=== PATIENT | female | born 1985 | race African-American/Black ===

== ENCOUNTER → 2019-01-09 | Outpatient (REF) | payer OTHER | LOC: M SFHCLERA 14:04 | PROVIDERS: ATTEND Nurse Practitioner Family | DX: Z53.9 Procedure and treatment not carried out, unspecified reason (principal) ==

== ENCOUNTER → 2019-02-28 | Outpatient (CLI) | payer OTHER ==
[2019-02-28 17:44] LABS: FOLLICLE STIMULATING HORMONE 6.3 mIU/mL; LUTEINIZING HORMONE 7.6 mIU/mL; PROGESTERONE 0.21 NG/ML; PROLACTIN 7.9 NG/ML
== END ==
LOC: M PLALAB 11:51
PROVIDERS: ATTEND Specialist
DX: N92.6 Irregular menstruation, unspecified (principal)

== ENCOUNTER → 2019-02-28 | Outpatient (REF) | payer OTHER ==
[2019-02-28 17:29] LABS: BASO % 0.3 % (0.0-1.0); EOS # 0.1 10^3/uL (0.0-0.5); EOS % 0.7 % (0.0-3.0); HEMATOCRIT 41.2 % (36.0-47.0); HEMOGLOBIN 13.4 g/dl (12.0-15.5); LYMPH # 3.5 10^3/uL (1.5-5.0); LYMPH % 31.6 % (24.0-44.0); MEAN CORPUSCULAR HGB CONC 32.5 g/dl (32.0-36.5); MEAN CORPUSCULAR VOLUME 89.2 fl (80.0-96.0); MONO # 0.5 10^3/uL (0.0-0.8); MONO % 4.5 % (0.0-5.0); NEUTROPHILS % 62.5 % (36.0-66.0); PLATELET COUNT, AUTOMATED 281 10^3/uL (150-450); RED BLOOD COUNT 4.62 10^6/uL (4.00-5.40); WHITE BLOOD COUNT 11.2 10^3/uL (4.0-10.0)
[2019-02-28 17:41] LABS: ALBUMIN 3.6 GM/DL (3.2-5.2); ALT/SGPT 22 U/L (12-78); BILIRUBIN,TOTAL 0.3 MG/DL (0.2-1.0); BLOOD UREA NITROGEN 11 MG/DL (7-18); CALCIUM LEVEL 8.8 MG/DL (8.5-10.1); CARBON DIOXIDE LEVEL 24 MEQ/L (21-32); CHLORIDE LEVEL 108 MEQ/L (98-107); CHOLESTEROL LEVEL 167 MG/DL (<200); CHOLESTEROL RISK RATIO 3.036 (<5); CREATININE FOR GFR 0.69 MG/DL (0.55-1.30); FREE T4 1.24 NG/DL (0.76-1.46); GLOMERULAR FILTRATION RATE > 60.0 (>60); GLUCOSE, FASTING 104 MG/DL (70-100); HDL CHOLESTEROL 55 MG/DL (>40); LDL CHOLESTEROL 94 MG/DL (<100); NON-HDL-C 112 MG/DL; POTASSIUM SERUM 4.1 MEQ/L (3.5-5.1); SODIUM LEVEL 140 MEQ/L (136-145); TOTAL PROTEIN 7.6 GM/DL (6.4-8.2); TRIGLYCERIDES LEVEL 88 MG/DL (<150)
[2019-02-28 17:49] LABS: HEMOGLOBIN A1c 7.1 %
[2019-02-28 18:21] LABS: MALB URINE SIEMENS 27.3 MG/L
== END ==
LOC: M SFHCLERA 11:58
PROVIDERS: ATTEND Nurse Practitioner Family
DX: Z76.89 Persons encountering health services in other specified circumstances (principal); E03.9 Hypothyroidism, unspecified; E11.9 Type 2 diabetes mellitus without complications; R82.90 Unspecified abnormal findings in urine; N92.6 Irregular menstruation, unspecified
CPT/HCPCS: 36415; 80053; 80061; 82043; 83001; 83002; 83036; 84144; 84146; 84439; 84443; 85025; G0463

== ENCOUNTER 2019-04-21 15:06 | Emergency (ER) | payer OTHER ==
[~2019-04-21] VITALS: Ht 167.6 cm; Wt 139.1 kg
[2019-04-21] MEDS ORDERED: CLOM50TA9 PO (15:27)
[2019-04-21] MEDS ORDERED: PROV10TA PO (15:27)
[2019-04-21] MEDS ORDERED: ALBU83IN NEB (15:30)
[2019-04-21 15:42] LABS: BASO % 0.2 % (0.0-1.0); EOS # 0.1 10^3/uL (0.0-0.5); EOS % 0.5 % (0.0-3.0); HEMATOCRIT 36.4 % (36.0-47.0); HEMOGLOBIN 12.2 g/dl (12.0-15.5); LYMPH # 3.3 10^3/uL (1.5-5.0); LYMPH % 23.4 % (24.0-44.0); MEAN CORPUSCULAR HEMOGLOBIN 29.5 pg (27.0-33.0); MEAN CORPUSCULAR HGB CONC 33.5 g/dl (32.0-36.5); MEAN CORPUSCULAR VOLUME 88.1 fl (80.0-96.0); MONO # 0.6 10^3/uL (0.0-0.8); MONO % 4.5 % (0.0-5.0); PLATELET COUNT, AUTOMATED 322 10^3/uL (150-450); RED BLOOD COUNT 4.13 10^6/uL (4.00-5.40); WHITE BLOOD COUNT 14.1 10^3/uL (4.0-10.0)
--- NOTE | 2019-04-21 15:42 | REP ---
Portable chest x-ray: Two views presented. History: Chest pain. No comparison study. Findings: The lungs are well inflated and clear. The pleural angles are sharp. Heart size is normal. Pulmonary vasculature is not increased. EKG electrodes are seen. Impression: Negative portable chest x-ray.. Electronically Signed by Dustin Jiang MD 04/21/2019 03:33 P
[2019-04-21 16:10] LABS: ERYTHROCYTE SEDIMENTATION RATE 46 mm/hr (0-20)
[2019-04-21 16:19] LABS: BLOOD UREA NITROGEN 15 MG/DL (7-18); CALCIUM LEVEL 9.1 MG/DL (8.5-10.1); CARBON DIOXIDE LEVEL 26 MEQ/L (21-32); CHLORIDE LEVEL 107 MEQ/L (98-107); CK-MB VALUE MASS < 1.0 NG/ML (<3.6); CPK CREATINE PHOSPHOKINASE 71 U/L (26-192); CREATININE FOR GFR 0.76 MG/DL (0.55-1.30); GLOMERULAR FILTRATION RATE > 60.0 (>60); GLUCOSE, FASTING 102 MG/DL (70-100); MB/CK RELATIVE INDEX 1.41 (< OR =4); POTASSIUM SERUM 4.1 MEQ/L (3.5-5.1); SODIUM LEVEL 139 MEQ/L (136-145); TROPONIN I < 0.02 NG/ML (< 0.10)
[2019-04-21] MEDS ORDERED: COMBIVENT RESPIMAT 100-20MCG INHALER 4GM INH ONE (17:00)
--- NOTE | 2019-04-21 17:28 | ECGEPIP ---
[facility] - ED Test Date: 2019-04-21 Pat Name: POORNIMA MARIEepartment: Room: - Gender: Female Manager Clinical Informatics: ct : 1985 Requested By: Melania Antunez Order Number: [id number] Reading MD: Melania Antunez Measurements Intervals [place] Rate: 89 P: 30 [place]: 206 QRS: 8 QRSD: 90 T: 20 QT: 334 QTc: 408 Interpretive Statements SINUS RHYTHM NSTTW abnormalities NO PRIOR Electronically Signed on 04-21-2019 17:28:01 EDT by Melania Antunez
[2019-04-21] MEDS ORDERED: predniSONE 20 MG TAB PO ONE (17:30)
[2019-04-21] MEDS ORDERED: ACETAMINOPHEN 325 MG TAB As Ordered ONE (17:39)
[2019-04-21] MEDS ORDERED: ACETAMINOPHEN 325 MG TAB PO ONE (17:45)
--- NOTE | 2019-04-21 18:00 | REPVR ---
PROCEDURE INFORMATION: Exam: US Duplex Lower Extremity Veins Exam date and time: 04/21/2019 5:56 PM Age: 34 years old Clinical indication: Pain; Leg, lower; Bilateral; Additional info: Cp/dyspnea TECHNIQUE: Imaging protocol: Real-time duplex ultrasound of the Lower Extremities with 2-D cabrera scale, color Doppler flow and spectral waveform analysis with image documentation. Complete exam focused on the bilateral lower extremity veins. COMPARISON: No relevant prior studies available. FINDINGS: Veins evaluated include common femoral, saphenofemoral junction, femoral, popliteal Doppler evaluation shows normal venous flow with respiratory variation and augmentation with distal compression. No intraluminal filling defect. Doppler waveforms and flow directionality are normal. No abnormal focal fluid collections present. IMPRESSION: No evidence of deep venous thrombosis in visualized lower extremity veins. Electronically signed by: Mikey Méndez On 04/21/2019 18:00:19 PM
[2019-04-21] MEDS ORDERED: COMBAER6 INH (18:06)
[2019-04-21] MEDS ORDERED: PRED20TA PO (18:07)
[2019-04-21 18:27] LABS: ALBUMIN 3.2 GM/DL (3.2-5.2); ALT/SGPT 14 U/L (12-78); BILIRUBIN,DIRECT < 0.1 MG/DL (0.0-0.2); BILIRUBIN,TOTAL 0.2 MG/DL (0.2-1.0); LIPASE 78 U/L (73-393); TOTAL PROTEIN 7.5 GM/DL (6.4-8.2)
[2019-04-21] MEDS ORDERED: ONDANSETRON 4MG/2ML VIAL (J2405) IV ONE (18:30)
[2019-04-21] MEDS: MORPHINE 4 MG/ML 1ML VIAL/SYRINGE (J2270) IV PRN ×2 (18:35→19:35)
--- NOTE | 2019-04-21 19:40 | REPVR ---
PROCEDURE INFORMATION: Exam: US Pelvis Complete, Transabdominal Exam date and time: 04/21/2019 7:28 PM Age: 34 years old Clinical indication: Pelvic pain TECHNIQUE: Imaging protocol: Real-time transabdominal pelvic ultrasound with image documentation. Complete exam. COMPARISON: No relevant prior studies available. FINDINGS: Exam is limited due to patient body habitus and resultant poor resolution. Uterus measures 8.5 x 5.8 x 6.8 cm in size. No focal uterine mass. Endometrial stripe appears homogeneous, measuring six mm in thickness. Right and left ovaries are not visualized on either transabdominal or endovaginal imaging No abnormal volume of free fluid within the pelvis. IMPRESSION: Unremarkable appearance of the uterus and endometrium. Nonvisualization of the ovaries despite transabdominal and endovaginal pelvic imaging. Electronically signed by: Mikey Méndez On 04/21/2019 19:39:50 PM
[2019-04-21 20:00] VITALS: BP 131/86
== END 2019-04-21 20:19 | disposition home or self-care (01) ==
LOC: EDBD 15:06 → M ED 15:06
DX: J45.909 Unspecified asthma, uncomplicated (principal); R10.9 Unspecified abdominal pain; R11.2 Nausea with vomiting, unspecified; E11.9 Type 2 diabetes mellitus without complications; E03.9 Hypothyroidism, unspecified; D25.9 Leiomyoma of uterus, unspecified; Z88.0 Allergy status to penicillin; Z88.8 Allergy status to other drugs, medicaments and biological substances; Z91.041 Radiographic dye allergy status; Z79.51 Long term (current) use of inhaled steroids; Z79.899 Other long term (current) drug therapy
CPT/HCPCS: 71045; 76830; 76856; 80048; 80076; 82550; 82553; 83690; 84484; 85025; 85652; 87804; 93005; 93041; 93970; 94640; 94760; 96374; 96375; 99285; G0463; J2270; J2405

== ENCOUNTER → 2019-04-30 | Outpatient (REF) ==
[~2019-04-30] MED LIST: ALBU83IN NEB; CLOM50TA9 PO; COMBAER6 INH; PRED20TA PO; PROV10TA PO
[2019-04-30 11:40] LABS: RUBELLA IgG QUALITATIVE IMMUNE (IMMUNE)
== END ==
LOC: M LAB 10:02
PROVIDERS: ATTEND Nurse Practitioner Adult Health
DX: Z02.1 Encounter for pre-employment examination (principal)

== ENCOUNTER 2019-08-20 14:25 | Emergency (ER) | payer OTHER ==
[~2019-08-20] VITALS: Ht 165.1 cm; Wt 141.8 kg
[2019-08-20] MEDS ORDERED: LEVO50TA5 (14:33)
[2019-08-20] MEDS ORDERED: ZOFR4TAB16 PO (14:33)
[2019-08-20] MEDS ORDERED: METF-838 (14:33)
[2019-08-20 15:30] LABS: BASO % 0.1 % (0.0-1.0); EOS # 0.1 10^3/uL (0.0-0.5); EOS % 0.9 % (0.0-3.0); HEMATOCRIT 35.6 % (36.0-47.0); HEMOGLOBIN 11.7 g/dl (12.0-15.5); LYMPH # 3.9 10^3/uL (1.5-5.0); LYMPH % 28.8 % (24.0-44.0); MEAN CORPUSCULAR HEMOGLOBIN 28.2 pg (27.0-33.0); MEAN CORPUSCULAR HGB CONC 32.9 g/dl (32.0-36.5); MEAN CORPUSCULAR VOLUME 85.8 fl (80.0-96.0); MONO # 0.7 10^3/uL (0.0-0.8); MONO % 4.8 % (0.0-5.0); NEUTROPHILS # 8.8 10^3/uL (1.5-8.5); PLATELET COUNT, AUTOMATED 317 10^3/uL (150-450); RED BLOOD COUNT 4.15 10^6/uL (4.00-5.40); WHITE BLOOD COUNT 13.6 10^3/uL (4.0-10.0)
[2019-08-20 15:49] LABS: ALBUMIN 3.1 GM/DL (3.2-5.2); ALT/SGPT 21 U/L (12-78); BILIRUBIN,DIRECT < 0.1 MG/DL (0.0-0.2); BILIRUBIN,TOTAL 0.1 MG/DL (0.2-1.0); LIPASE 93 U/L (73-393); TOTAL PROTEIN 7.2 GM/DL (6.4-8.2)
[2019-08-20 17:00] LABS: BLOOD UREA NITROGEN 8 MG/DL (7-18); CARBON DIOXIDE LEVEL 29 MEQ/L (21-32); CHLORIDE LEVEL 105 MEQ/L (98-107); CK-MB VALUE MASS 1.1 NG/ML (<3.6); CPK CREATINE PHOSPHOKINASE 89 U/L (26-192); CREATININE FOR GFR 0.74 MG/DL (0.55-1.30); GLOMERULAR FILTRATION RATE > 60.0 (>60); GLUCOSE, FASTING 127 MG/DL (70-100); MB/CK RELATIVE INDEX 1.24 (< OR =4); POTASSIUM SERUM 4.1 MEQ/L (3.5-5.1); SODIUM LEVEL 140 MEQ/L (136-145); TROPONIN I < 0.02 NG/ML (< 0.10)
[2019-08-20] MEDS ORDERED: NS 1,000 ML IV ONE (17:00)
[2019-08-20] MEDS ORDERED: READI-CAT 2 PO SCH (17:10)
[2019-08-20] MEDS ORDERED: ONDANSETRON 4MG/2ML VIAL IV ONE ×2 (17:15→18:00)
[2019-08-20] MEDS ORDERED: KETOROLAC 30 MG/ML 1ML VIAL IV ONE (17:15)
--- NOTE | 2019-08-20 17:54 | ECGEPIP ---
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
[2019-08-20] MEDS ORDERED: MORPHINE 4 MG/ML 1ML VIAL/SYRINGE (J2270) IV ONE (18:00)
[2019-08-20 18:30] VITALS: BP 182/106
--- NOTE | 2019-08-21 01:31 | REP ---
CHEST, SINGLE VIEW: There is no evidence of acute infiltrate. No pleural effusion is seen. The heart is normal in size. The mediastinal silhouette is unremarkable. The visualized osseous structures are intact. IMPRESSION: No acute pulmonary disease. Electronically Signed by Ashutosh Davis MD 08/22/2019 10:07 A
== END 2019-08-20 18:42 | disposition left against medical advice (07) ==
LOC: M ED 14:25
DX: R11.2 Nausea with vomiting, unspecified (principal); Z53.20 Procedure and treatment not carried out because of patient's decision for unspecified reasons; Z79.51 Long term (current) use of inhaled steroids; Z79.84 Long term (current) use of oral hypoglycemic drugs; Z79.899 Other long term (current) drug therapy; Z88.0 Allergy status to penicillin; Z88.8 Allergy status to other drugs, medicaments and biological substances
CPT/HCPCS: 36415; 71045; 80047; 80048; 80076; 82550; 82553; 83690; 84484; 84702; 85025; 93005; 96361; 96374; 96375; 96376; 99285; J1885; J2405

== ENCOUNTER 2019-10-14 11:20 | Emergency (ER) | payer OTHER ==
[~2019-10-14] VITALS: Ht 167.6 cm; Wt 138.6 kg
[~2019-10-14 11:20] MED LIST changes: +LEVO50TA5; +METF-838; +ZOFR4TAB16 PO
[2019-10-14] MEDS ORDERED: ONDANSETRON 4MG/2ML VIAL IV ONE (12:45)
[2019-10-14] MEDS ORDERED: NS 1,000 ML IV ONE (12:45)
[2019-10-14] MEDS ORDERED: MORPHINE 4 MG/ML 1ML VIAL/SYRINGE (J2270) IV ONE ×2 (12:45→14:15)
[2019-10-14] MEDS ORDERED: ONDANSETRON 4MG/2ML VIAL As Ordered ONE (13:02)
[2019-10-14] MEDS ORDERED: MORPHINE 4 MG/ML 1ML VIAL/SYRINGE (J2270) As Ordered ONE (13:02)
[2019-10-14 13:37] LABS: BASO % 0.1 % (0.0-1.0); EOS # 0.1 10^3/uL (0.0-0.5); EOS % 0.8 % (0.0-3.0); HEMATOCRIT 39.3 % (36.0-47.0); HEMOGLOBIN 13.1 g/dl (12.0-15.5); LYMPH # 3.8 10^3/uL (1.5-5.0); LYMPH % 27.6 % (24.0-44.0); MEAN CORPUSCULAR HEMOGLOBIN 29.2 pg (27.0-33.0); MEAN CORPUSCULAR HGB CONC 33.3 g/dl (32.0-36.5); MEAN CORPUSCULAR VOLUME 87.7 fl (80.0-96.0); MONO # 0.6 10^3/uL (0.0-0.8); MONO % 4.2 % (0.0-5.0); NEUTROPHILS # 9.2 10^3/uL (1.5-8.5); NEUTROPHILS % 66.8 % (36.0-66.0); PLATELET COUNT, AUTOMATED 322 10^3/uL (150-450); RED BLOOD COUNT 4.48 10^6/uL (4.00-5.40); WHITE BLOOD COUNT 13.7 10^3/uL (4.0-10.0)
[2019-10-14 13:46] LABS: ALBUMIN 3.2 GM/DL (3.2-5.2); ALT/SGPT 19 U/L (12-78); BILIRUBIN,DIRECT < 0.1 MG/DL (0.0-0.2); BILIRUBIN,TOTAL 0.3 MG/DL (0.2-1.0); BLOOD UREA NITROGEN 11 MG/DL (7-18); CALCIUM LEVEL 8.6 MG/DL (8.5-10.1); CARBON DIOXIDE LEVEL 26 MEQ/L (21-32); CHLORIDE LEVEL 107 MEQ/L (98-107); GLOMERULAR FILTRATION RATE > 60.0 (>60); GLUCOSE, FASTING 117 MG/DL (70-100); HCG, SERUM QUALITATIVE NEGATIVE (NEGATIVE); LIPASE 54 U/L (73-393); POTASSIUM SERUM 4.5 MEQ/L (3.5-5.1); SODIUM LEVEL 136 MEQ/L (136-145); TOTAL PROTEIN 7.4 GM/DL (6.4-8.2)
[2019-10-14] MEDS: READI-CAT 2 PO SCH ×2 (14:48→15:00)
[2019-10-14 16:00] VITALS: BP 144/96
== END 2019-10-14 13:59 | disposition left against medical advice (07) ==
LOC: M ED 11:20
DX: R10.9 Unspecified abdominal pain (principal); R11.2 Nausea with vomiting, unspecified; R19.7 Diarrhea, unspecified; Z53.9 Procedure and treatment not carried out, unspecified reason; E11.9 Type 2 diabetes mellitus without complications; E03.9 Hypothyroidism, unspecified; Z88.0 Allergy status to penicillin; Z91.041 Radiographic dye allergy status; Z79.51 Long term (current) use of inhaled steroids; Z79.899 Other long term (current) drug therapy
CPT/HCPCS: 80048; 80076; 83690; 84703; 85025; 93041; 96361; 96374; 96375; 96376; 99284; J2270; J2405

== ENCOUNTER → 2019-11-14 | Outpatient (CLI) | payer OTHER ==
[2019-11-14 14:28] LABS: FREE T4 1.3 NG/DL (0.76-1.46); THYROID STIMULATING HORMONE 1.14 uIU/ML (0.358-3.740)
== END ==
LOC: M LAB 13:06
PROVIDERS: ATTEND Internal Medicine Gastroenterology
DX: R10.84 Generalized abdominal pain (principal)

== ENCOUNTER → 2020-02-05 | Outpatient (CLI) | payer OTHER ==
[~2020-02-05] MED LIST changes: +AMIT25TA PO; +ESCI10TA2 PO; -LEVO50TA5; +LEVO50TA5 PO; -METF-838; +METF-838 PO
== END ==
LOC: M LABSMTC 09:34
PROVIDERS: ATTEND Anesthesiology
DX: Z01.812 Encounter for preprocedural laboratory examination (principal); Z20.828 Contact with and (suspected) exposure to other viral communicable diseases

== ENCOUNTER 2020-02-10 09:54 | Day surgery (SDC) | payer OTHER ==
[~2020-02-10] VITALS: Ht 165.1 cm; Wt 137.0 kg
[~2020-02-10 09:54] MED LIST changes: +NS 1,000 ML IV ONE
[2020-02-10] MEDS ORDERED: LIDOCAINE 2% 100MG/5ML SDV (FOR ANES.) As Ordered ONE (10:25)
[2020-02-10] MEDS ORDERED: propofoL 200 MG/20 ML VIAL As Ordered ONE ×2 (10:25→11:59)
[2020-02-10] MEDS ORDERED: fentaNYL 100 MCG/2 ML INJECTION (J3010) As Ordered ONE (10:26)
--- NOTE | 2020-02-10 11:53 | ROOR ---
Patient Name: Jefry Escalanteanijuan carlosknaman Procedure Date: 02/10/2020 11:40 AM Date of : 1985 Age: 34 Room: [facility] Gender: Female Note Status: Finalized Procedure: Upper GI endoscopy Indications: Abdominal pain, Nausea Providers: Ezequiel OG MD Referring MD: Evy PATTEN Requesting Provider: Medicines: Monitored Anesthesia Care Complications: No immediate complications. Procedure: Pre-Anesthesia Assessment: - The heart rate, respiratory rate, oxygen saturations, blood pressure, adequacy of pulmonary ventilation, and response to care were monitored throughout the procedure. The Endoscope was introduced through the mouth, and advanced to the second part of duodenum. The upper GI endoscopy was accomplished without difficulty. The patient tolerated the procedure well. Findings: The esophagus was normal. The stomach was normal. The examined duodenum was normal. Impression: - Normal esophagus. - Normal stomach. - Normal examined duodenum. - No specimens collected. Recommendation: - Follow an antireflux regimen. - Continue present medications. Procedure Code(s): --- Professional --- 21005, Esophagogastroduodenoscopy, flexible, transoral; diagnostic, including collection of specimen(s) by brushing or washing, when performed (separate procedure) Diagnosis Code(s): --- Professional --- R11.0, Nausea R10.9, Unspecified abdominal pain CPT copyright 2019 [employer]. All rights reserved. The codes documented in this report are preliminary and upon analytical data scientist review may be revised to meet current compliance requirements. Ezequiel Og MD Ezequiel OG MD 02/10/2020 11:53:06 AM Electronically signed by Ezequiel OG MD Number of Addenda: 0 Note Initiated On: 02/10/2020 11:40 AM Estimated Blood Loss: Estimated blood loss: none.
--- NOTE | 2020-02-10 12:17 | ROOR ---
Patient Name: Jefry Escalanteanipeknaman Procedure Date: 02/10/2020 11:40 AM Date of : 1985 Age: 34 Room: [facility] Gender: Female Note Status: Finalized Procedure: Colonoscopy Indications: Generalized abdominal pain, Hematochezia, Change in bowel habits Providers: Ezequiel OG MD Referring MD: Evy PATTEN Requesting Provider: Medicines: Monitored Anesthesia Care Complications: No immediate complications. Procedure: Pre-Anesthesia Assessment: - The heart rate, respiratory rate, oxygen saturations, blood pressure, adequacy of pulmonary ventilation, and response to care were monitored throughout the procedure. The Colonoscope was introduced through the anus and advanced to the terminal ileum, with identification of the appendiceal orifice and IC valve. The colonoscopy was performed without difficulty. The patient tolerated the procedure well. The quality of the bowel preparation was fair. Findings: The perianal and digital rectal examinations were normal. The colon (entire examined portion) appeared normal. The terminal ileum appeared normal. Small Internal Hemorrhoids. Biopsies for histology were taken with a cold forceps for evaluation of microscopic colitis. Impression: - Preparation of the colon was fair. - The entire examined colon is normal. - The examined portion of the ileum was normal. - Small Internal Hemorrhoids. - Biopsies were taken with a cold forceps for evaluation of microscopic colitis. Recommendation: - Continue present medications. - Telephone endoscopist for pathology results in 2 weeks. Procedure Code(s): --- Professional --- 34012, Colonoscopy, flexible; with biopsy, single or multiple Diagnosis Code(s): --- Professional --- R19.4, Change in bowel habit K92.1, Melena (includes Hematochezia) R10.84, Generalized abdominal pain CPT copyright 2019 [employer]. All rights reserved. The codes documented in this report are preliminary and upon toolroom keeper review may be revised to meet current compliance requirements. Ezequiel Og MD Ezequiel OG MD 02/10/2020 12:17:22 PM Electronically signed by Ezequiel OG MD Number of Addenda: 0 Note Initiated On: 02/10/2020 11:40 AM Estimated Blood Loss: Estimated blood loss: none.
[2020-02-10] MEDS ORDERED: IBUPROFEN 800 MG TAB PO STA (12:36)
[2020-02-10 12:50] VITALS: BP 122/72
== END 2020-02-10 13:12 | disposition home or self-care (01) ==
LOC: M OPP 09:54
PROVIDERS: ATTEND Internal Medicine Gastroenterology
DX: R10.84 Generalized abdominal pain (principal); K92.1 Melena; R19.4 Change in bowel habit; K64.8 Other hemorrhoids; R11.0 Nausea
CPT/HCPCS: 43235; 45380; 88305; J3010

== ENCOUNTER → 2020-04-19 | Outpatient (REF) | payer OTHER ==
[~2020-04-19] MED LIST changes: -AMIT25TA PO; +AMIT25TA17 PO; +ESCI10TA16 PO; -ESCI10TA2 PO; -NS 1,000 ML IV ONE
[2020-04-19 13:45] LABS: BLOOD UREA NITROGEN 12 MG/DL (7-18); CALCIUM LEVEL 9.4 MG/DL (8.5-10.1); CARBON DIOXIDE LEVEL 29 MEQ/L (21-32); CHLORIDE LEVEL 109 MEQ/L (98-107); GLOMERULAR FILTRATION RATE > 60.0 (>60); GLUCOSE, FASTING 84 MG/DL (70-100); POTASSIUM SERUM 4.2 MEQ/L (3.5-5.1); SODIUM LEVEL 141 MEQ/L (136-145)
== END ==
LOC: M PLALAB 10:12
PROVIDERS: ATTEND Family Medicine
DX: E03.9 Hypothyroidism, unspecified (principal)

== ENCOUNTER 2020-07-27 11:48 | Emergency (ER) | payer OTHER ==
[~2020-07-27] VITALS: Ht 167.6 cm; Wt 133.7 kg
[~2020-07-27 11:48] MED LIST changes: +JARD1TAB; +METF-838; +NITR1CAP11 PO; +PERC5TAB12 PO
[2020-07-27] MEDS ORDERED: KETOROLAC 30 MG/ML 1ML VIAL IV ONE (12:35)
[2020-07-27] MEDS ORDERED: ONDANSETRON 4MG/2ML VIAL IV ONE ×2 (13:00→14:15)
[2020-07-27] MEDS ORDERED: METOCLOPRAMIDE INJ 10MG/2ML VIAL (J2765 PER 1) IV ONE (13:00)
[2020-07-27 13:10] LABS: BASO % 0.2 % (0.0-1.0); EOS # 0.1 10^3/uL (0.0-0.5); EOS % 0.7 % (0.0-3.0); HEMATOCRIT 39.5 % (36.0-47.0); HEMOGLOBIN 12.4 g/dl (12.0-15.5); LYMPH # 2.8 10^3/uL (1.5-5.0); LYMPH % 22.3 % (24.0-44.0); MEAN CORPUSCULAR HEMOGLOBIN 26.6 pg (27.0-33.0); MEAN CORPUSCULAR HGB CONC 31.4 g/dl (32.0-36.5); MEAN CORPUSCULAR VOLUME 84.6 fl (80.0-96.0); MONO # 0.5 10^3/uL (0.0-0.8); MONO % 4.3 % (2.0-8.0); NEUTROPHILS # 8.9 10^3/uL (1.5-8.5); NEUTROPHILS % 72.3 % (36.0-66.0); PLATELET COUNT, AUTOMATED 378 10^3/uL (150-450); RED BLOOD COUNT 4.67 10^6/uL (4.00-5.40); WHITE BLOOD COUNT 12.4 10^3/uL (4.0-10.0)
[2020-07-27 13:35] LABS: ALBUMIN 3.4 GM/DL (3.2-5.2); ALT/SGPT 24 U/L (12-78); BILIRUBIN,DIRECT < 0.1 MG/DL (0.0-0.2); BILIRUBIN,TOTAL 0.2 MG/DL (0.2-1.0); FREE T4 1.27 NG/DL (0.76-1.46); LIPASE 65 U/L (73-393); THYROID STIMULATING HORMONE 0.848 uIU/ML (0.358-3.740); TOTAL PROTEIN 7.6 GM/DL (6.4-8.2)
[2020-07-27] MEDS ORDERED: PERCOCET 5MG/325MG TAB PO ONE (14:05)
[2020-07-27] MEDS ORDERED: MORPHINE 4 MG/ML 1ML VIAL/SYRINGE (J2270) IV ONE (14:15)
[2020-07-27 15:45] LABS: CHLAMYDIA DNA AMPLIFICATION NEGATIVE (NEGATIVE); GC DNA AMPLIFICATION NEGATIVE (NEGATIVE)
[2020-07-27] MEDS ORDERED: HYDROmorphone 2 MG TAB PO ONE (15:45)
[2020-07-27] MEDS ORDERED: PILL CUTTER 1 EACH XX ONE (16:02)
[2020-07-27] MEDS ORDERED: HYDROMORPHONE HCL 0.5 MG/ 0.5 ML SYRINGE (J1170 PER 1) IV ONE ×2 (16:05→18:25)
--- NOTE | 2020-07-27 16:46 | REP ---
INDICATION: R/O TORSION. COMPARISON: Multiple the latest 07/21/2020 TECHNIQUE: Transvesical and transvaginal scanning FINDINGS: The uterus measures 9.3 x 5.4 x 6.2 cm. The parenchymal echo pattern is unchanged and again seen to be within normal limits. The endometrial echo complex has a maximal thickness of 8 mm and is within normal limits. The right ovary measures 3.2 x 2.6 x 2.8 cm. Ovarian Doppler could not be obtained. The right ovary has a normal appearance. The left ovary measures 2.5 x 1.9 x 2.3 cm and has a normal appearance. Ovarian Doppler could not be obtained. Urinary bladder was seen to be empty. IMPRESSION: Negative but limited exam as ovarian Doppler could not be obtained. <Electronically signed by Valentin Zapata > 07/27/20 [id number]
[2020-07-27] MEDS ORDERED: PROMETHAZINE INJ 25 MG/ML VIAL (J2550) IV ONE (17:55)
[2020-07-27] MEDS ORDERED: NS 1,000 ML IV ONE (18:05)
--- NOTE | 2020-07-27 20:00 | REP ---
INDICATION: Doppler both ovaries. COMPARISON: Pelvic ultrasound earlier today. TECHNIQUE: Limited transvaginal ultrasound performed to evaluate blood flow in the ovaries, as earlier pelvic ultrasound could not detect Doppler flow in either ovary. FINDINGS: Once again Doppler interrogation of the left ovary is unsuccessful. There does appear to be arterial and venous flow in the right ovary. IMPRESSION: Extremely limited exam again once again by patient body habitus. The Doppler interrogation does demonstrate blood flow within the right ovary, however, blood flow could not be documented in the left ovary. <Electronically signed by Ashutosh Davis > 07/27/201956
[2020-07-27] MEDS ORDERED: OXYC1TAB23 PO (21:30)
[2020-07-27] MEDS ORDERED: ZOFR4TAB16 PO (21:32)
--- NOTE | 2020-07-27 21:43 | CR.PDOC ---
General Date of Consultation: Jul 27, 2020 Attending Physician: Heaven Maldonado MD Consultation REASON FOR CONSULTATION/CHIEF COMPLAINT: pelvic pain. HISTORY OF PRESENT ILLNESS: Jefry is a 35yo who recently underwent an unsuccessful IVF cycle. She presents to the ER for pelvic/abdominal pain that began on 18 July. She presented to ER on 21 July and was seen by Dr. Baldwin. At that time she was offered option of observation with pain management vs diagnostic laparoscopy vs discharge with outpatient follow-up and she elected for outpatient follow-up. She has history of chronic pelvic pain and infertility. She notes that her pain has been the same as when she was here on the , it is cramping/sharp in nature, located across the lower abdomen/pelvis and improves somewhat with pain medications that she was discharged with. Today she was given dilaudid and pain does not go away completely. She notes nausea and vomiting episodes today. NO fevers/chills. Had a normal bowel movement this morning. She has had light intermittent spotting, and denies heavy vaginal bleeding. She is tearful in our interaction stating that she "just wants to find the cause". She notes that she saw Dr. Suarez in the office previously and was hoping to get in with him, but has not been able to make an appt despite referral being placed by her PCP. Her history is significant for a laparotomy procedure in 2019 for pain where there was suspicion of an ovarian torsion, but during the surgery there was no abnormality noted other than scar tissue. Unfortunately, the patient went on to develop an infection with re-admission and had to have a drain placed. Pelvic ultrasound was performed earlier today and did not comment on blood flow to the ovaries so another ultrasound was requested and they were able to note flow to the right ovary but were not able to comment on flow to the left ovary secondary to difficulties related to body habitus. ALLERGIES: Please see below. HOME MEDICATIONS: Please see below. PAST MEDICAL HISTORY: 1. Uterine leiomyomas, status post open myomectomy. 2. Chronic pelvic pain. 3. hypothyroid. 4. diabetes mellitus type 2 5. hypertension 6. severe obesity, BMI 47 PAST SURGICAL HISTORY: 1. 2009, open myomectomy, removal of several leiomyomas 2. 2012, laparoscopic cholecystectomy. 3. 2015, D&C for an SAB 4. 2018, exploratory laparotomy via Pfannenstiel (suspected/concerns for ovarian torsion, but no significant intraoperative findings other than scar tissue); this was complicated by wound infection and hospital readmission for drain placement ([facility]) SOCIAL HISTORY: Marital status and/or living arrangements: is [employer] No tobacco, alcohol or drug use PHYSICAL EXAMINATION: VITAL SIGNS: Please see below. GENERAL APPEARANCE: Tearful, able to move comfortably in the bed ABDOMEN: Obese, no guarding or rebound, no rigidity. Nonacute. Some mild tenderness to palpation in the lower abdomen. NEUROLOGICAL: No deficits LABORATORY DATA: Please see below. Imaging data: See [employer] for reports ASSESSMENT/PLAN: 1. Chronic pelvic pain. Nonacute abdomen. Suspicion for ovarian torsion remains low (especially since the ovaries are normal in size, pain is unchanged over the past nearly 10 days, abdomen is non-surgical on exam and labs are stable). 2. Offered diagnostic laparoscopy vs hospital admission for pain control/observation vs close outpatient follow-up. We discussed that if her pain is related to adhesions or endometriosis, the surgery she needs would be better suited as a scheduled case rather than a late night add-on. Given that she does not have an acute abdomen, it is reasonable to perform surgery at a later date. She elected for close outpatient folllow-up. She very specifically wants to see Dr. Suarez again since she established care with him previously. I will try to get her an appointment with him this Sunday when he is in the office- patient will be called with appt time. 3. Limited prescription for Percocet given by ER provider as well as a work note to get her through to next Sunday. Vital Signs/I&O Vital Signs Date Time Temp Pulse Resp B/P (MAP) Pulse Ox O2 Delivery O2 Flow Rate FiO2 07/27/20 21:10 97.4 98 19 149/84 (105) 96 Room Air Laboratory Data Labs 24H Laboratory Tests 2 07/27/20 12:46: Immature Granulocyte % (Auto) 0.2, Neutrophils (%) (Auto) 72.3H, Lymphocytes (%) (Auto) 22.3L, Monocytes (%) (Auto) 4.3, Eosinophils (%) (Auto) 0.7, Basophils (%) (Auto) 0.2, Neutrophils # (Auto) 8.9H, Lymphocytes # (Auto) 2.8, Monocytes # (Auto) 0.5, Eosinophils # (Auto) 0.1, Basophils # (Auto) 0.0, Nucleated Red Blood Cells % (auto) 0.0, Total Bilirubin 0.2, Direct Bilirubin < 0.1, Aspartate Amino Transf (AST/SGOT) 15, Alanine Aminotransferase (ALT/SGPT) 24, Alkaline Phosphatase 118H, Total Protein 7.6, Albumin 3.4, Albumin/Globulin Ratio 0.8L, Lipase 65L, Thyroid Stimulating Hormone (TSH) 0.848, Free Thyroxine 1.27, Free Triiodothyronine 3.0 07/27/20 12:56: POC Glucose (Misc Panel) 148H, POC Sodium (Misc Panel) 140, POC Potassium (Misc Panel) 3.9, POC Chloride (Misc Panel) 103, POC Total CO2 (Misc Panel) 25.0, POC Blood Urea Nitrogen (Misc Panel 5L, POC Ionized Calcium (Misc Panel) 4.7, POC Creatinine (Misc Panel) 0.7, POC Hematocrit (Misc Panel) 39.0 07/27/20 12:58: POC Beta HCG, Quantitative < 5.0 07/27/20 13:57: Urine Color YELLOW, Urine Appearance HAZY, Urine pH 6.0, Urine Specific [place] 1.028, Urine Protein NEGATIVE, Urine Glucose (UA) 3+H, Urine Ketones 1+H, Urine Blood NEGATIVE, Urine Nitrite NEGATIVE, Urine Bilirubin NEGATIVE, Urine Urobilinogen 0.2, Urine Leukocyte Esterase NEGATIVE, Urine WBC (Auto) 1, Urine RBC (Auto) 0, Urine Hyaline Casts (Auto) 0, Urine Bacteria (Auto) 1+H, Urine Squamous Epithelial Cells 7, Urine Sperm (Auto) 07/27/20 14:00: Chlamydia trachomatis DNA (CONSTANTINE) NEGATIVE, Neisseria gonorrhoeae DNA (CONSTANTINE) NEGATIVE 07/27/20 18:13: POC Glucose (Misc Panel) 116H, POC Sodium (Misc Panel) 142, POC Potassium (Misc Panel) 3.9, POC Chloride (Misc Panel) 103, POC Total CO2 (Misc Panel) 26.0, POC Blood Urea Nitrogen (Misc Panel 8, POC Ionized Calcium (Misc Panel) 4.7, POC Creatinine (Misc Panel) 0.6, POC Hematocrit (Misc Panel) 40.0 CBC/BMP Laboratory Tests 07/27/20 12:46 Microbiology Microbiology 07/27/20 Wet Prep - Final, Complete Allergies Coded Allergies: Iodinated Contrast Media (Verified Allergy, Intermediate, 02/03/20) hives Penicillins (Verified Allergy, Intermediate, 02/03/20) hives metoclopramide (Verified Allergy, Intermediate, 02/03/20) hives/hallucinations Home Medications Scheduled Escitalopram Oxalate (Escitalopram Oxalate) 10 Mg Tablet, 10 MG PO DAILY, (Reported) Ipratropium/Albuterol Sulfate (Combivent Respimat 20-100 Mcg) 4 Gm Mist.inhal, 1 PUFF INH QID for dyspnea, #1 Levothyroxine Sodium (Levothyroxine Sodium) 50 Mcg Tablet, 50 MCG PO DAILY, (Reported) Nitrofurantoin Monohyd/M-Cryst (Nitrofurantoin [place]-Mcr 100 mg) 100 Mg Capsule, 100 MG PO BID for 5 Days, #10 Scheduled PRN Albuterol Sulf (Albuterol Sulfate) 2.5 Mg/3 Ml Vial.neb, 1 VIAL NEB Q4HP PRN for wheezing, #50 (Reported) Ondansetron HCl (Zofran) 4 Mg Tablet, 1 TAB PO Q6-8HP PRN for nausea/vomiting for 2 Days, #5 (Reported) Oxycodone HCl/Acetaminophen (Percocet 5-325 mg Tablet) 1 Each Tablet, 1 TAB PO Q6-8HP PRN for PAIN, #15 Miscellaneous Medications Empagliflozin (Jardiance) 10 Mg Tablet, (Reported) Metformin HCl (Metformin HCl ER) 500 Mg Tab.er.24h, (Reported) Heaven Maldonado MD Jul 27, 2020 21:43
[2020-07-27] MEDS ORDERED: OXYCODONE/APAP 5MG/325MG(BULK FOR ED) 1 TABLET PO ONE (21:55)
[2020-07-27 22:21] VITALS: BP 168/89
[2020-08-02] MEDS ORDERED: AMLO1TAB25 (12:59)
== END 2020-07-27 22:22 | disposition home or self-care (01) ==
LOC: M ED 11:48
DX: R10.9 Unspecified abdominal pain (principal); R11.2 Nausea with vomiting, unspecified; E03.9 Hypothyroidism, unspecified; J45.909 Unspecified asthma, uncomplicated; Z86.718 Personal history of other venous thrombosis and embolism; Z88.0 Allergy status to penicillin; Z91.041 Radiographic dye allergy status; Z88.8 Allergy status to other drugs, medicaments and biological substances; E66.01 Morbid (severe) obesity due to excess calories; Z68.42 Body mass index [BMI] 45.0-49.9, adult; R93.9 Diagnostic imaging inconclusive due to excess body fat of patient
CPT/HCPCS: 76830; 76856; 80047; 80076; 81001; 83690; 84439; 84443; 84481; 84702; 85025; 87210; 87661; 96361; 96374; 96375; 96376; 99284; J1170; J1885; J2270; J2405

== ENCOUNTER → 2020-07-31 | Outpatient (CLI) | payer OTHER ==
[~2020-07-31] MED LIST changes: +AMLO1TAB25 PO; -JARD1TAB; +JARD1TAB PO; +LOVE1INJ SC; -METF-838; +OXYC1TAB23 PO
== END ==
LOC: M LABSMTC 09:17
PROVIDERS: ATTEND Anesthesiology
DX: Z01.812 Encounter for preprocedural laboratory examination (principal)

== ENCOUNTER 2020-08-04 14:57 | Day surgery (SDC) | payer OTHER ==
[~2020-08-04] VITALS: Ht 165.1 cm; Wt 131.5 kg
[~2020-08-04 14:57] MED LIST changes: +LIDOCAINE 1% MDV 20ML VIAL SQ PRN; -LOVE1INJ SC; +LR 1,000 ML IV ONE
[2020-08-04 15:33] VITALS: BP 178/112
[2020-08-04 16:20] LABS: BLOOD UREA NITROGEN 7 MG/DL (7-18); CREATININE FOR GFR 0.64 MG/DL (0.55-1.30); GLUCOSE, FASTING 97 MG/DL (70-100)
[2020-08-04 16:21] LABS: CALCIUM LEVEL 8.9 MG/DL (8.5-10.1); CARBON DIOXIDE LEVEL 26 MEQ/L (21-32); CHLORIDE LEVEL 107 MEQ/L (98-107); GLOMERULAR FILTRATION RATE > 60.0 (>60); POTASSIUM SERUM 3.8 MEQ/L (3.5-5.1); SODIUM LEVEL 141 MEQ/L (136-145)
--- NOTE | 2020-08-04 16:28 | REP ---
INDICATION: R/O BLOOD CLOT RIGHT FOREARM COMPARISON: None. TECHNIQUE: Davis scale and color Doppler evaluation using linear high frequency transducer. FINDINGS: Ultrasound examination of the right upper extremity demonstrates small amount of nonocclusive thrombus in the distal cephalic vein at the level of the proximal forearm in the region of prior IV. The right jugular, subclavian, axillary, brachial, basilic, and proximal to mid/distal cephalic veins are patent. The contralateral left subclavian vein is patent. IMPRESSION: Small amount of nonocclusive thrombus in the distal right cephalic vein at the level of the proximal forearm. <Electronically signed by Jose Carlos Soares > 08/04/20 [id number]
[2020-08-04] MEDS ORDERED: OXYC1TAB23 PO ×2 (16:40→16:57)
[2020-08-04] MEDS ORDERED: LOVE1INJ SC (17:16)
--- NOTE | 2020-08-04 17:24 | IPNPDOC ---
Text Note Date of Service The patient was seen on 08/04/20. NOTE 35-year-old female with multiple medical problems presents today for laparosc opic surgery due to pelvic pain. She is experienced 3 weeks of severe pelvic pain which is unrelenting. She had multiple trips to the emergency department. Imaging studies have been negative, but inconclusive. Her medical history is significant for obesity, hypertension, diabetes, history of factor V Leiden with DVT. While the patient was being admitted in the preoperative area she related that she had a new finding of a lump on her right forearm which was tender and just became noticeable on the morning of admission. Given the patient's history of DVT, Doppler ultrasound of the right upper extremity was performed. This revealed a thrombus in the right cephalic vein which was small and nonocclusive. The findings were discussed with both the anesthesia team and in the presence of the patient. Due to the risk of a non-treated deep vein thrombosis during surgery the decision was made to cancel surgery. The patient will be started on Lovenox. She has been on Lovenox in the past. Patient will be referred back to her primary physician for management of anticoagulation. We will also plan referral to hematology. Her surgery can be rescheduled once she is cleared medically from this acute event. VS,Fishbone, I+O VS, Fishbone, I+O Laboratory Tests 08/04/20 15:37 Vital Signs Date Time Temp Pulse Resp B/P (MAP) Pulse Ox O2 Delivery O2 Flow Rate FiO2 08/04/20 15:33 98.0 101 20 178/112 (134) 99 EMMY ARIAS MD Aug 04, 2020 17:24
== END 2020-08-04 16:40 | disposition home or self-care (01) ==
LOC: M SDC 14:57
PROVIDERS: ATTEND Specialist
DX: R10.2 Pelvic and perineal pain (principal); Z53.09 Procedure and treatment not carried out because of other contraindication; I82.611 Acute embolism and thrombosis of superficial veins of right upper extremity

== ENCOUNTER 2020-09-10 13:05 | Emergency (ER) | payer OTHER ==
[~2020-09-10] VITALS: Ht 167.6 cm; Wt 134.2 kg
[2020-09-10 13:05] VITALS: BP 184/102
[~2020-09-10 13:05] MED LIST changes: -LIDOCAINE 1% MDV 20ML VIAL SQ PRN; +LOVE1INJ SC; -LR 1,000 ML IV ONE; +XARE20TA PO
[2020-09-10 15:54] LABS: BASO % 0.2 % (0.0-1.0); EOS # 0.1 10^3/uL (0.0-0.5); EOS % 0.9 % (0.0-3.0); HEMATOCRIT 36.2 % (36.0-47.0); HEMOGLOBIN 11.4 g/dl (12.0-15.5); LYMPH # 3.6 10^3/uL (1.5-5.0); LYMPH % 29.7 % (24.0-44.0); MEAN CORPUSCULAR HEMOGLOBIN 26.5 pg (27.0-33.0); MEAN CORPUSCULAR HGB CONC 31.5 g/dl (32.0-36.5); MONO # 0.6 10^3/uL (0.0-0.8); MONO % 4.8 % (2.0-8.0); NEUTROPHILS # 7.8 10^3/uL (1.5-8.5); NEUTROPHILS % 64.1 % (36.0-66.0); PLATELET COUNT, AUTOMATED 373 10^3/uL (150-450); RED BLOOD COUNT 4.31 10^6/uL (4.00-5.40); WHITE BLOOD COUNT 12.2 10^3/uL (4.0-10.0)
[2020-09-10 16:20] LABS: ALBUMIN 3.5 GM/DL (3.2-5.2); ALT/SGPT 22 U/L (12-78); BILIRUBIN,DIRECT < 0.1 MG/DL (0.0-0.2); BILIRUBIN,TOTAL 0.3 MG/DL (0.2-1.0); BLOOD UREA NITROGEN 10 MG/DL (7-18); CALCIUM LEVEL 9.2 MG/DL (8.5-10.1); CARBON DIOXIDE LEVEL 26 MEQ/L (21-32); CHLORIDE LEVEL 108 MEQ/L (98-107); GLOMERULAR FILTRATION RATE > 60.0 (>60); GLUCOSE, FASTING 132 MG/DL (70-100); HCG, SERUM QUALITATIVE NEGATIVE (NEGATIVE); LIPASE 74 U/L (73-393); POTASSIUM SERUM 4.3 MEQ/L (3.5-5.1); SODIUM LEVEL 137 MEQ/L (136-145); TOTAL PROTEIN 7.9 GM/DL (6.4-8.2)
== END 2020-09-10 16:00 | disposition left against medical advice (07) ==
LOC: M ED 13:05
DX: Z53.21 Procedure and treatment not carried out due to patient leaving prior to being seen by health care provider (principal)

== ENCOUNTER → 2020-09-14 | Outpatient (CLI) | payer OTHER ==
[~2020-09-14] MED LIST changes: +IBUP-1022 PO
--- NOTE | 2020-09-15 08:36 | ECGEPIP ---
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 May be a normal variant related to h his age. Early repolarization no change from 08/20/19. Electronically Signed on 09-15-2020 8:35:58 EDT by Teo Montgomery
== END ==
LOC: M EKG 12:26
PROVIDERS: ATTEND Anesthesiology
DX: Z01.818 Encounter for other preprocedural examination (principal); I44.0 Atrioventricular block, first degree; E03.9 Hypothyroidism, unspecified; I10 Essential (primary) hypertension; E11.9 Type 2 diabetes mellitus without complications
CPT/HCPCS: 93005; G0463

== ENCOUNTER → 2020-09-20 | Outpatient (CLI) | payer OTHER ==
[~2020-09-20] MED LIST changes: -IBUP-1022 PO
== END ==
LOC: M LABSMTC 09:01
PROVIDERS: ATTEND Anesthesiology
DX: Z01.812 Encounter for preprocedural laboratory examination (principal)

== ENCOUNTER 2020-09-24 14:26 | Day surgery (SDC) | payer OTHER ==
[~2020-09-24] VITALS: Ht 165.1 cm; Wt 134.0 kg
[~2020-09-24 14:26] MED LIST changes: +LR 1,000 ML IV ONE
[2020-09-24 15:46] LABS: HEMATOCRIT 35.2 % (36.0-47.0); HEMOGLOBIN 11.4 g/dl (12.0-15.5); MEAN CORPUSCULAR HEMOGLOBIN 26.8 pg (27.0-33.0); MEAN CORPUSCULAR HGB CONC 32.4 g/dl (32.0-36.5); MEAN CORPUSCULAR VOLUME 82.8 fl (80.0-96.0); PLATELET COUNT, AUTOMATED 388 10^3/uL (150-450); RED BLOOD COUNT 4.25 10^6/uL (4.00-5.40)
[2020-09-24] MEDS ORDERED: BUPIVACAINE HCL 0.25% 10ML VIAL As Ordered ONE (17:38)
[2020-09-24] MEDS ORDERED: OXYC1TAB23 PO (17:42)
[2020-09-24] MEDS ORDERED: IBUP-1022 PO (17:43)
--- NOTE | 2020-09-24 17:47 | ROOPDOC ---
[facility] Report Of Operation Report of Operation DATE OF PROCEDURE: 09/24/20 PREPROCEDURE DIAGNOSES: Pelvic pain. POSTPROCEDURE DIAGNOSES: Same. PROCEDURE PERFORMED: Operative laparoscopy, lysis of adhesions. SURGEON: Emmy Arias MD ANESTHESIA: GETA. ESTIMATED BLOOD LOSS: Approximately 10 mL. COMPLICATIONS: none. FINDINGS: Normal normal right fallopian tube and ovary. Uterus with evidence of prior surgery. No fibroids visualized. Dense adhesions of the sigmoid colon to the left ovary and fallopian tube. Adhesions of the left ovary to the posterior uterine fundus. No evidence of endometriosis. Normal upper abdomen. SPECIMENS REMOVED: None PROCEDURE NOTE: The patient was taken to the operating room where general endotracheal anesthesia was induced. She was prepped and draped in a sterile fashion in the dorsal lithotomy position. A sponge stick was placed in the vagina to use as a manipulator. A periumbilical incision was made with a scalpel. A Veress needle was placed through this incision while tenting up on the skin of the abdomen. An intra-abdominal location the Veress needle was assessed with the use of a saline filled syringe. A pneumoperitoneum was created. The Veress needle was removed. A 5 mm trocar using Fromography was inserted through this incision. A 5 and 8 mm suprapubic port were placed under direct visualization. A grasping instrument was used to elevate adhesions to the posterior uterus and left adnexa. Harmonic scalpel was used to sharply dissect these adhesions. All adhesions were removed from the left adnexa. The pneumoperitoneum was released. All instruments were removed. The skin was closed with 4-0 Monocryl subcuticular sutures. Sponge instrument and needle counts were correct. The patient went to the recovery room in stable condition. EMMY ARAIS MD Sep 24, 2020 17:47
[2020-09-24] MEDS ORDERED: propofoL 200 MG/20 ML VIAL As Ordered ONE ×2 (17:52→18:24)
[2020-09-24] MEDS ORDERED: fentaNYL 250 MCG/5 ML INJECTION (J3010) As Ordered ONE (17:52)
[2020-09-24] MEDS ORDERED: ROCURONIUM BROMIDE 50 MG/5 ML VIAL As Ordered ONE (17:52)
[2020-09-24] MEDS ORDERED: dexameTHASONE 4 MG/ML 1ML VIAL (J1100 PER 1MG) As Ordered ONE (17:52)
[2020-09-24] MEDS ORDERED: ONDANSETRON 4MG/2ML VIAL As Ordered ONE (17:52)
[2020-09-24] MEDS ORDERED: LIDOCAINE 2% 100MG/5ML SDV (FOR ANES.) As Ordered ONE (17:52)
[2020-09-24] MEDS ORDERED: MIDAZOLAM INJ 2MG/2ML VIAL (J2250 PER 1MG) As Ordered ONE (17:52)
[2020-09-24] MEDS ORDERED: LABETALOL 100MG/20ML VIAL As Ordered ONE (18:42)
[2020-09-24] MEDS ORDERED: KETOROLAC 60MG 2ML VIAL As Ordered ONE (18:49)
[2020-09-24] MEDS ORDERED: SUGAMMADEX SODIUM 500 MG/5 ML VIAL (BRIDION) As Ordered ONE (18:49)
[2020-09-24] MEDS ORDERED: ACETAMINOPHEN 1000MG 100ML IV BTL (OFIRMEV) (J0131 PER 10MG) As Ordered ONE (18:49)
[2020-09-24] MEDS ORDERED: ALBUTEROL 6.7GM INHALER **FOR ANES. CART/OMNICELL ONLY As Ordered ONE (18:52)
[2020-09-24] MEDS ORDERED: SUCCINYLCHOLINE 100 MG/5 ML SYRINGE (J0330) As Ordered ONE (18:56)
[2020-09-24] MEDS ORDERED: LR 1,000 ML IV SCH ×2 (19:45)
[2020-09-24] MEDS ORDERED: fentaNYL 100 MCG/2 ML INJECTION (J3010) IV PRN (19:45)
[2020-09-24] MEDS ORDERED: ONDANSETRON 4MG/2ML VIAL IV PRN (19:45)
[2020-09-24] MEDS ORDERED: oxyCODONE 5MG TAB PO PRN (19:45)
[2020-09-24] MEDS ORDERED: ALBUTEROL 90 MCG/ACT 8GM HFA INHALER INH PRN (19:50)
[2020-09-24] MEDS ORDERED: KETOROLAC 30 MG/ML 1ML VIAL IV PRN (19:50)
[2020-09-24] MEDS ORDERED: ONDANSETRON 4 MG TAB PO PRN (19:50)
[2020-09-24 21:00] VITALS: BP 165/108
[2020-09-24 21:30] VITALS: BP 166/108
[2020-09-24 22:00] VITALS: BP 163/100
[2020-09-24] MEDS: PERCOCET 5MG/325MG TAB PO PRN (22:35)
[2020-09-24 23:00] VITALS: BP 162/102
[2020-09-25] VITALS: BP 165/104
[2020-09-25] MEDS ORDERED: ONDANSETRON 4 MG TAB PO PRN (00:10)
[2020-09-25] MEDS: MORPHINE 4 MG/ML 1ML VIAL/SYRINGE (J2270) IV PRN ×2 (00:35→07:46)
[2020-09-25] MEDS: metFORMIN XR 500MG TAB *GLUCOPHAGE XR PO SCH ×2 (00:47→07:47)
[2020-09-25 01:00] VITALS: BP 160/101
[2020-09-25 02:00] VITALS: BP 158/103
[2020-09-25] MEDS ORDERED: PROMETHAZINE INJ 25 MG/ML VIAL (J2550) IV PRN (02:05)
[2020-09-25] MEDS ORDERED: MORPHINE 4 MG/ML 1ML VIAL/SYRINGE (J2270) IV ONE (02:15)
[2020-09-25 06:00] VITALS: BP 137/88
[2020-09-25] MEDS: PERCOCET 5MG/325MG TAB PO PRN ×2 (06:50→11:44)
[2020-09-25 10:00] VITALS: BP 139/90
[2020-09-25 14:00] VITALS: BP_SYST 120; BP_SYST 136; BP_DIAS 67; BP_DIAS 70
== END 2020-09-25 13:50 | disposition home or self-care (01) ==
LOC: M SDC 14:26 → M MS5PR 20:55 → M SDC 09-25 13:50
PROVIDERS: ATTEND Specialist
DX: N73.6 Female pelvic peritoneal adhesions (postinfective) (principal); I10 Essential (primary) hypertension; J45.909 Unspecified asthma, uncomplicated; K58.8 Other irritable bowel syndrome; E11.9 Type 2 diabetes mellitus without complications; Z91.041 Radiographic dye allergy status; Z88.0 Allergy status to penicillin; Z88.8 Allergy status to other drugs, medicaments and biological substances; F41.9 Anxiety disorder, unspecified; F32.9 Major depressive disorder, single episode, unspecified; Z79.84 Long term (current) use of oral hypoglycemic drugs; Z79.02 Long term (current) use of antithrombotics/antiplatelets; Z79.52 Long term (current) use of systemic steroids
CPT/HCPCS: 58660; 81025; 85027; 86850; 86900; 86901; 96361; 96374; 96375; 96376; J0131; J0330; J1100; J1885; J2250; J2270; J2405; J3010

== ENCOUNTER → 2020-11-18 | Outpatient (CLI) | payer OTHER ==
[~2020-11-18] MED LIST changes: +IBUP-1022 PO; -LR 1,000 ML IV ONE
--- NOTE | 2020-11-18 17:40 | REP ---
INDICATION: PERSONAL HISTORY OF COVID-19 COMPARISON: 08/20/2019 TECHNIQUE: PA and lateral. FINDINGS: The mediastinum and cardiac silhouette are normal. The lung sanchez are clear and without acute consolidation, effusion, or pneumothorax. The skeletal structures are intact and normal. IMPRESSION: No acute cardiopulmonary process. <Electronically signed by Jose Carlos Saores > 11/18/20 [id number]
== END ==
LOC: M RAD 16:34
PROVIDERS: ATTEND Nurse Practitioner Family
DX: Z86.16 Personal history of COVID-19 (principal)

== ENCOUNTER → 2020-12-02 | Outpatient (CLI) | payer OTHER ==
[2020-12-02 11:56] LABS: BASO % 0.2 % (0.0-1.0); EOS # 0.1 10^3/uL (0.0-0.5); EOS % 0.6 % (0.0-3.0); HEMATOCRIT 36.3 % (36.0-47.0); HEMOGLOBIN 11.5 g/dl (12.0-15.5); LYMPH # 3.2 10^3/uL (1.5-5.0); LYMPH % 28.8 % (24.0-44.0); MEAN CORPUSCULAR HGB CONC 31.7 g/dl (32.0-36.5); MEAN CORPUSCULAR VOLUME 81.9 fl (80.0-96.0); MONO # 0.5 10^3/uL (0.0-0.8); MONO % 4.4 % (2.0-8.0); NEUTROPHILS # 7.3 10^3/uL (1.5-8.5); NEUTROPHILS % 65.6 % (36.0-66.0); PLATELET COUNT, AUTOMATED 373 10^3/uL (150-450); RED BLOOD COUNT 4.43 10^6/uL (4.00-5.40); WHITE BLOOD COUNT 11.1 10^3/uL (4.0-10.0)
[2020-12-02 12:21] LABS: HEMOGLOBIN A1c 9.4 %
[2020-12-02 12:39] LABS: ALBUMIN 3.5 GM/DL (3.2-5.2); ALT/SGPT 25 U/L (12-78); BILIRUBIN,TOTAL 0.4 MG/DL (0.2-1.0); BLOOD UREA NITROGEN 12 MG/DL (7-18); CALCIUM LEVEL 9.2 MG/DL (8.5-10.1); CARBON DIOXIDE LEVEL 27 MEQ/L (21-32); CHLORIDE LEVEL 105 MEQ/L (98-107); CHOLESTEROL LEVEL 188 MG/DL (<200); CHOLESTEROL RISK RATIO 3.032 (<5); CREATININE FOR GFR 0.82 MG/DL (0.55-1.30); FREE T4 1.33 NG/DL (0.76-1.46); GLOMERULAR FILTRATION RATE > 60.0 (>60); GLUCOSE, FASTING 315 MG/DL (70-100); HDL CHOLESTEROL 62 MG/DL (>40); LDL CHOLESTEROL 107 MG/DL (<100); NON-HDL-C 126 MG/DL; POTASSIUM SERUM 4.3 MEQ/L (3.5-5.1); SODIUM LEVEL 135 MEQ/L (136-145); TOTAL PROTEIN 7.9 GM/DL (6.4-8.2); TRIGLYCERIDES LEVEL 97 MG/DL (<150)
== END ==
LOC: M WUC 10:03
PROVIDERS: ATTEND Nurse Practitioner Family
DX: E03.9 Hypothyroidism, unspecified (principal); I10 Essential (primary) hypertension; E11.9 Type 2 diabetes mellitus without complications
CPT/HCPCS: 36415; 80053; 80061; 81002; 82948; 83036; 84439; 84443; 85025; G0463

== ENCOUNTER → 2021-03-15 | Outpatient (CLI) | payer OTHER ==
[2021-03-15 11:47] LABS: BASO % 0.2 % (0.0-1.0); EOS # 0.1 10^3/uL (0.0-0.5); HEMATOCRIT 34.9 % (36.0-47.0); HEMOGLOBIN 10.9 g/dl (12.0-15.5); LYMPH % 30.2 % (24.0-44.0); MEAN CORPUSCULAR HEMOGLOBIN 26.4 pg (27.0-33.0); MEAN CORPUSCULAR HGB CONC 31.2 g/dl (32.0-36.5); MEAN CORPUSCULAR VOLUME 84.5 fl (80.0-96.0); MONO # 0.5 10^3/uL (0.0-0.8); NEUTROPHILS # 6.2 10^3/uL (1.5-8.5); NEUTROPHILS % 63.2 % (36.0-66.0); PLATELET COUNT, AUTOMATED 367 10^3/uL (150-450); RED BLOOD COUNT 4.13 10^6/uL (4.00-5.40); WHITE BLOOD COUNT 9.8 10^3/uL (4.0-10.0)
[2021-03-15 12:31] LABS: ALBUMIN 3.1 GM/DL (3.2-5.2); ALT/SGPT 14 U/L (12-78); BILIRUBIN,TOTAL 0.1 MG/DL (0.2-1.0); BLOOD UREA NITROGEN 12 MG/DL (7-18); CALCIUM LEVEL 9.1 MG/DL (8.5-10.1); CARBON DIOXIDE LEVEL 24 MEQ/L (21-32); CHLORIDE LEVEL 107 MEQ/L (98-107); CREATININE FOR GFR 0.67 MG/DL (0.55-1.30); GLOMERULAR FILTRATION RATE > 60.0 (>60); GLUCOSE, FASTING 89 MG/DL (70-100); HEMOGLOBIN A1c 6.2 %; POTASSIUM SERUM 4.4 MEQ/L (3.5-5.1); SODIUM LEVEL 139 MEQ/L (136-145); TOTAL PROTEIN 7.1 GM/DL (6.4-8.2)
== END ==
LOC: M WUC 08:31
PROVIDERS: ATTEND Student in an Organized Health Care Education/Training Program
DX: R10.32 Left lower quadrant pain (principal); E11.9 Type 2 diabetes mellitus without complications

== ENCOUNTER → 2021-03-29 | Outpatient (CLI) | payer OTHER | LOC: M WUC 08:44 | PROVIDERS: ATTEND Specialist | DX: N92.6 Irregular menstruation, unspecified (principal) ==

== ENCOUNTER → 2021-04-01 | Outpatient (CLI) | payer OTHER | LOC: M WUC 09:18 | PROVIDERS: ATTEND Student in an Organized Health Care Education/Training Program | DX: M54.50 Low back pain, unspecified (principal) ==

== ENCOUNTER 2021-04-25 07:55 | Emergency (ER) | payer OTHER ==
[~2021-04-25] VITALS: Ht 167.6 cm; Wt 132.7 kg
[2021-04-25] MEDS ORDERED: NS 500 ML IV ONE (08:20)
[2021-04-25] MEDS ORDERED: KETOROLAC 30 MG/ML 1ML VIAL IV ONE (08:20)
[2021-04-25] MEDS ORDERED: ONDANSETRON 4MG/2ML VIAL IV ONE (09:50)
[2021-04-25] MEDS ORDERED: MORPHINE 4 MG/ML 1ML VIAL/SYRINGE (J2270) IV ONE (09:50)
[2021-04-25 09:59] LABS: BASO % 0.2 % (0.0-1.0); EOS # 0.1 10^3/uL (0.0-0.5); EOS % 1.1 % (0.0-3.0); HEMATOCRIT 37.8 % (36.0-47.0); HEMOGLOBIN 12.2 g/dl (12.0-15.5); LYMPH # 3.4 10^3/uL (1.5-5.0); LYMPH % 27.2 % (24.0-44.0); MEAN CORPUSCULAR HEMOGLOBIN 27.3 pg (27.0-33.0); MEAN CORPUSCULAR HGB CONC 32.3 g/dl (32.0-36.5); MEAN CORPUSCULAR VOLUME 84.6 fl (80.0-96.0); MONO # 0.6 10^3/uL (0.0-0.8); MONO % 4.9 % (2.0-8.0); NEUTROPHILS # 8.1 10^3/uL (1.5-8.5); PLATELET COUNT, AUTOMATED 370 10^3/uL (150-450); RED BLOOD COUNT 4.47 10^6/uL (4.00-5.40); WHITE BLOOD COUNT 12.3 10^3/uL (4.0-10.0)
[2021-04-25 10:25] LABS: HCG, SERUM QUALITATIVE NEGATIVE (NEGATIVE)
[2021-04-25 10:44] LABS: ALBUMIN 3.2 GM/DL (3.2-5.2); ALT/SGPT 25 U/L (12-78); BILIRUBIN,DIRECT < 0.1 MG/DL (0.0-0.2); BILIRUBIN,TOTAL 0.3 MG/DL (0.2-1.0); BLOOD UREA NITROGEN 15 MG/DL (7-18); CALCIUM LEVEL 8.9 MG/DL (8.5-10.1); CARBON DIOXIDE LEVEL 28 MEQ/L (21-32); CHLORIDE LEVEL 105 MEQ/L (98-107); CREATININE FOR GFR 0.78 MG/DL (0.55-1.30); GLOMERULAR FILTRATION RATE > 60.0 (>60); GLUCOSE, FASTING 135 MG/DL (70-100); LIPASE 63 U/L (73-393); POTASSIUM SERUM 5.7 MEQ/L (3.5-5.1); SODIUM LEVEL 136 MEQ/L (136-145); TOTAL PROTEIN 8.1 GM/DL (6.4-8.2)
[2021-04-25] MEDS ORDERED: PERCOCET 5MG/325MG TAB PO ONE (11:15)
[2021-04-25 12:10] VITALS: BP 121/79
[2021-04-25] MEDS ORDERED: PERC5TAB12 PO (13:27)
== END 2021-04-25 13:50 | disposition home or self-care (01) ==
LOC: M ED 07:55
DX: R10.2 Pelvic and perineal pain (principal); E11.9 Type 2 diabetes mellitus without complications; I10 Essential (primary) hypertension; Z79.4 Long term (current) use of insulin; Z79.899 Other long term (current) drug therapy
CPT/HCPCS: 74176; 76830; 76856; 80048; 80076; 83690; 84702; 84703; 85025; 93976; 96361; 96374; 96375; 99283; J1885; J2270; J2405

== ENCOUNTER → 2021-05-03 | Outpatient (CLI) | payer OTHER ==
[2021-05-03 07:48] LABS: BASO % 0.3 % (0.0-1.0); EOS # 0.1 10^3/uL (0.0-0.5); EOS % 0.7 % (0.0-3.0); HEMATOCRIT 36.5 % (36.0-47.0); HEMOGLOBIN 11.7 g/dl (12.0-15.5); LYMPH # 3.2 10^3/uL (1.5-5.0); MEAN CORPUSCULAR HEMOGLOBIN 26.8 pg (27.0-33.0); MEAN CORPUSCULAR HGB CONC 32.1 g/dl (32.0-36.5); MEAN CORPUSCULAR VOLUME 83.5 fl (80.0-96.0); MONO # 0.6 10^3/uL (0.0-0.8); MONO % 4.6 % (2.0-8.0); NEUTROPHILS # 9.7 10^3/uL (1.5-8.5); PLATELET COUNT, AUTOMATED 341 10^3/uL (150-450); RED BLOOD COUNT 4.37 10^6/uL (4.00-5.40); WHITE BLOOD COUNT 13.7 10^3/uL (4.0-10.0)
[2021-05-03 08:20] LABS: ALBUMIN 3.4 GM/DL (3.2-5.2); ALT/SGPT 22 U/L (12-78); BILIRUBIN,DIRECT < 0.1 MG/DL (0.0-0.2); BILIRUBIN,TOTAL 0.3 MG/DL (0.2-1.0); BLOOD UREA NITROGEN 15 MG/DL (7-18); CALCIUM LEVEL 8.7 MG/DL (8.5-10.1); CARBON DIOXIDE LEVEL 26 MEQ/L (21-32); CHLORIDE LEVEL 109 MEQ/L (98-107); CREATININE FOR GFR 0.79 MG/DL (0.55-1.30); FERRITIN 18 NG/ML (8-252); FREE T4 1.23 NG/DL (0.76-1.46); GLOMERULAR FILTRATION RATE > 60.0 (>60); GLUCOSE, FASTING 144 MG/DL (70-100); IRON (FE) 62 UG/DL (50-170); PERCENT SATURATION 15.7 % (13.2-45.0); POTASSIUM SERUM 4.1 MEQ/L (3.5-5.1); SODIUM LEVEL 138 MEQ/L (136-145); TOTAL IRON BINDING CAPACITY 396 UG/DL (250-450); TOTAL PROTEIN 7.6 GM/DL (6.4-8.2)
[2021-05-03 09:47] LABS: HEMOGLOBIN A1c 6.5 %
[2021-05-03 10:51] LABS: HEPATITIS B SURFACE ANTIGEN NEGATIVE (NEGATIVE)
[2021-05-03 11:19] LABS: HEPATITIS B CORE ANTIBODY IGM NEGATIVE (NEGATIVE); HEPATITIS C VIRUS ABY INDEX 0.2 INDEX (<0.8)
[2021-05-04 16:08] LABS: CERULOPLASMIN 39.9 mg/dL (19.0-39.0)
== END ==
LOC: M LAB 06:54
PROVIDERS: ATTEND Student in an Organized Health Care Education/Training Program
DX: R74.8 Abnormal levels of other serum enzymes (principal); K76.0 Fatty (change of) liver, not elsewhere classified

== ENCOUNTER → 2021-06-02 | Outpatient (CLI) | payer OTHER ==
[~2021-06-02] MED LIST changes: +LANTINJ4 SC; +LISI10TA22 PO; +TRUL0.5I SC
[2021-06-02 13:08] LABS: HEMOGLOBIN A1c 6.5 %
== END ==
LOC: M WUC 10:10
PROVIDERS: ATTEND Surgery
DX: Z86.39 Personal history of other endocrine, nutritional and metabolic disease (principal)